=== PATIENT | female | born 1960 | race Two or more races ===

== ENCOUNTER 2025-05-05 20:44 | Emergency (ER) | payer BC, OTHER ==
[~2025-05-05] VITALS: Ht 172.7 cm; Wt 89.0 kg
[2025-05-05 20:54] VITALS: BP 118/80; PULSE 88; RESP 16; TEMP 97.8; O2SAT 94
[2025-05-05] MEDS ORDERED: ACETAMINOPHEN 325 MG TAB PO ONE (21:30)
[2025-05-05] MEDS ORDERED: KETOROLAC TROMETH 30 MG/ML 1ML VIAL IM ONE (21:30)
--- NOTE | 2025-05-05 21:47 | ED.PDOC ---
GI ASSESSMENT HPI Comments 64-year-old female with a history of hypertension, and UTIs, was brought in by emergency services with a chief complaint of right lower quadrant abdominal pain with the associated nausea, chills, sweats, and dysuria. Patient states over right lower quadrant abdominal patient has spent onset for the past week with no alleviating factors at this time, the worsening factor upon eating. Patient also her pain has progressively worsened today. Patient denies any hematuria, headache, blurred vision, weakness, neither associated symptoms, modifying at this time. PHYSICAL EXAM: General: Awake, alert and oriented. Moderate distress. Chronic ill-appearing Skin: Skin in warm, dry and intact. Appropriate color for ethnicity. HEENT: The head is normocephalic and atraumatic. Conjunctivae are clear without exudates or hemorrhage. Sclera is non-icteric. EOM are intact. No signs of nystagmus. Eyelids are normal in appearance without swelling or lesions. Oral mucosa is pink and moist Neck: The neck is supple with normal range of motion. No JVD. Cardiac: Heart rate and rhythm are normal. No murmurs, gallops, or rubs are auscultated. Respiratory: No signs of respiratory distress. Lung sounds are clear in all lobes bilaterally without rales, rhonchi, or wheezes. Abdominal: Abdomen is soft, with right lower quadrant tenderness upon palpitation. Bowel sounds are present and normoactive in all of the remaining quadrants. Extremities: Upper and lower extremities are atraumatic in appearance without deformity or edema. Neurological: The patient is awake, alert and oriented to person, place, and time with normal speech. Speech is clear. There is no facial asymmetry. Psychiatric: Appropriate mood and affect. Good judgement and insight. REVIEW OF SYSTEMS: General: No fever, + chills, or fatigue HEENT: No sore throat, no earache, no congestion, no neck pain. Cardiac: No chest pain. No palpitations. Lungs: No shortness of breath, no cough. GI: + nausea, no vomiting, no diarrhea, no constipation, + right lower quadrant abdominal pain : No dysuria, frequency, or urgency. No hematuria. Musculoskeletal: No joint pain , no joint swelling, no extremity edema. Skin: No rash, no itching. Neuro: No headache, no dizziness, no weakness Chief Complaint: Abdominal Pain Time Seen by MD: 21:42 Reviewed Notes: Nurses Notes, Etiologist Notes, Medications, Allergies Allergies: Coded Allergies: Hydroxychloroquine (Verified Allergy, Unknown, 05/05/25) Home Meds Active Scripts Cephalexin Monohydrate (Cephalexin) 500 Mg Cap, 1 CAP PO BID for 10 Days, #20 CAP Prov:WALE WATSON MD 05/06/25 Information Source: Patient, Emergency Med Personnel Mode of Arrival: EMS Timing: Weeks Duration: Intermittent Prehospital treatment: 12 Lead EKG, Accucheck, Skydiving Instructor Quality: Aching, Sharp Vomitus: None Stool: Normal Severity: None Recent: None Recent Hx of: None Pain Location: RLQ Modifying Factors: Movement Associated sign and symptoms: Nausea, Abdominal Pain Past Medical History PAST MEDICAL HISTORY: HTN, UTI'S Surgical History: Denies all surgeries Family History Family History: Unknown Social History Smoker: Non-Smoker Alcohol: Denies ETOH Use Drugs: Denies Drug Use Lives In: Home Was a procedure done? Was a procedure done?: No GI differential Dx Differential Diagnosis: Appendicitis, Bowel Obstruction, Cholangitis, Cholecystitis, Constipation, Diverticular disease, Gastritis/PUD, Gastroe nteritis, Hernia, Ovarian cyst/torsion, Pancreatitis, Urinary Obstruction, UTI, Urolithiasis, Dehydration, Electrolyte Imbalance, Food Poisoning, Impaction, Renal Failure, Kidney Stone X-Ray, Labs, Meds, VS Vital Signs Date Time Temp Pulse Resp B/P (MAP) Pulse Ox O2 Delivery O2 Flow Rate FiO2 05/05/25 20:54 97.8 88 16 118/80 94 97.8 Lab Test 05/05/25 21:42 05/05/25 21:00 Range/Units White Blood Count 4.7 4.4-10.8 10^3/uL Red Blood Count 3.73 L 4.0-5.20 10^6/uL Hemoglobin 12.1 L 12.2-16.2 g/dL Hematocrit 35.3 L 36.0-46.0 % Mean Corpuscular Volume 94.5 80.0-100.0 fL Mean Corpuscular Hemoglobin 32.5 H 28.0-32.0 pg Mean Corpuscular Hemoglobin Concent 34.4 32.0-36.0 g/dL Red Cell Distribution Width 14.4 H 11.8-14.3 % Platelet Count 222 140-450 10^3/uL Mean Platelet Volume 7.2 6.9-10.8 fL Neutrophils (%) (Auto) 87.2 H 37.0-80.0 % Lymphocytes (%) (Auto) 10.5 10.0-50.0 % Monocytes (%) (Auto) 1.7 0.0-12.0 % Eosinophils (%) (Auto) 0.1 0.0-7.0 % Basophils (%) (Auto) 0.5 0.0-2.0 % Neutrophils # (Auto) 4.1 1.6-8.6 10 ^3/uL Lymphocytes # (Auto) 0.5 0.4-5.4 10 ^3/uL Monocytes # (Auto) 0.1 0-1.3 10 ^3/uL Eosinophils # (Auto) 0 0-0.8 10 ^3/uL Basophils # (Auto) 0 0-0.2 10 ^3/uL Nucleated Red Blood Cells 0.1 % Sodium Level 133 L 136-145 mmol/L Potassium Level 4.3 3.5-5.1 mmol/L Chloride Level 99 98-107 mmol/L Carbon Dioxide Level 22 20-31 mmol/L Anion Gap 12 5-15 Blood Urea Nitrogen 15 9-23 mg/dL Creatinine 1.25 H 0.550-1.02 mg/dL Glomerular Filtration Rate Calc 48 >90 mL/min BUN/Creatinine Ratio 12.0 10.0-20.0 Serum Glucose 111 H 74-106 mg/dL Calcium Level 9.5 8.7-10.4 mg/dL Urine Color Yellow Yellow Urine Clarity Turbid H Clear Urine pH 5.5 5.0-9.0 Urine Specific [place] 1.022 1.001-1.035 Urine Protein Trace H Negative Urine Ketones 1+ H Negative Urine Blood Negative Negative /uL Urine Nitrite Negative Negative Urine Bilirubin Negative Negative Urine Urobilinogen Normal Negative mg/dL Urine Leukocyte Esterase 3+ Negative /uL Urine RBC 1 0 - 4 /hpf Urine Microscopic WBC 67 H 0-5 /HPF Urine Squamous Epithelial Cells Mod <5 /hpf Urine Bacteria Few H None Seen /hpf Urine Hyaline Casts Few 0 - 2 /lpf Urine Mucus Few None Seen Urine Glucose Normal Normal mg/dL [facility] [id number] [facility] [id number] Ph: [phone] DIAGNOSTIC IMAGING Diagnostic Imaging Report : [id number] Signed PATIENT: AMOS ELLISONACCT: [id number] UNIT: [id number] : 1960 LOC: ER ROOM / BED: / AGE / SEX: 64 / F ADM STATUS: REG ER SERVICE 28 ORDERING PHYSICIAN: WALE WATSON MD PROCEDURE(s): ABPL - CT AB PEL WO CON-NO ORAL OR IV REASON: RIGHT LOWER QUADRANT ABDOMINAL PAIN, DYSURIA ORDER NUMBER(s): [id number], ACCESSION NUMBER(s): [id number] CLINICAL HISTORY: RIGHT LOWER QUADRANT ABDOMINAL PAIN, DYSURIA TECHNIQUE: CT of the abdomen and pelvis was performed without intravenous contrast. This exam was performed according to our departmental dose optimization program. Up-to-date CT equipment and radiation dose reduction techniques are utilized as appropriate. 15.37 CTDI: 15.37 DLP: 871.4 WID: COMPARISON: None FINDINGS: Lower Thorax: Minimal linear bibasilar scarring or atelectasis. Normal-sized heart. Moderate coronary artery calcifications. Liver and Biliary system: Unremarkable. Spleen: Unremarkable. Adrenal Glands and Kidneys: Probable cyst in the upper pole right kidney measuring 2.8 cm on series 2, image 41. No hydronephrosis or nephrolithiasis. Normal adrenal glands. Mild perinephric soft tissue stranding. Pancreas and Retroperitoneum: Mild pancreatic atrophy. No retroperitoneal lymphadenopathy. Aorta and Major Vessels: Aortoiliac vessels are normal in caliber containing mod erate calcified atherosclerotic plaque. Bowel, Mesentery and Peritoneal space: Normal caliber small and large bowel. Normal appendix. No free air or fluid collection. Mild predominantly distal colonic diverticulosis. Pelvis: Mild wall thickening of the urinary bladder although is underdistended. Otherwise unremarkable pelvis. Abdominal wall and Osseous Structures: Mild lower thoracic and lumbar spondylosis. No destructive osseous lesion. Chondrocalcinosis of the right hip and pubic symphysis. IMPRESSION: Mild bladder wall thickening although may be in part due to underdistention. Correlate with urinalysis if there is clinical concern for cystitis. Mild perinephric soft tissue stranding which is nonspecific . Correlate with urinalysis if there is clinical concern for urinary tract infection. Moderate calcified coronary artery disease partially imaged. Mild distal colonic diverticulosis. ATED BY: LEONARDO STONE MD DICTATED DATE/TIME: 05/05/252353 SIGNED BY: LEONARDO STONE MD SIGNED DATE/TIME: 05/05/252353 CC: Time of 1ST Reevaluation: 22:14 Reevaluation 1ST: Unchanged Patient Education/Counseling: Diagnosis, Treatment, Need For Follow Up Family Education/Counseling: No Family Present SEPSIS Sepsis Screen Date sepsis recognized/suspect: May 05, 2025 Time Sepsis recognized/suspect: 2053 Recent Procedure: No On Antibiotic Therapy: Yes Respiratory Rate >20: No Heart Rate >90: No Temp<36 C (96.8 F) or >38.3 C: No SBP <90 or MAP <65 mmHG: No New Acute Mental Status Change: No Is the patient on CPAP, BIPAP,: No Physician Orders Ct Ab Pel Wo Con-No Oral Or Iv (05/05/25 21:29) Vital Signs Date Time Temp Pulse Resp B/P (MAP) Pulse Ox O2 Delivery O2 Flow Rate FiO2 05/05/25 20:54 97.8 88 16 118/80 94 97.8 Laboratory Tests Test 05/05/25 21:42 White Blood Count 4.7 10^3/uL (4.4-10.8) Departure 1 Departure Time of Disposition: 00:32 Impression: Primary Impression: Abnormal renal function test Additional Impression: Urinary tract infection Disposition: HOME / SELF CARE / HOMELESS Condition: Stable Additional Instructions: ED DISCHARGE INSTRUCTIONS Instructions: Please read all instructions provided in this packet carefully. Although you have been discharged from the Emergency Department, this does not mean that you have a "clean bill of health". No definitive diagnosis for your symptoms has been made today. It is possible that you are in the process of developing a serious illness. This is why you must return to the ED without fail if any new or worsening symptoms (especially if your symptoms include chest pain, trouble breathing, abdominal pain, fever, headache, confusion, trouble seeing, or trouble walking) It is also very important that you see a primary care provider (PCP) within the next 3-5 days to follow up. Your renal function test was abnormal today. This could mean that you are dehydrated or that you have chronic kidney disease. It is very important that he follow up with the primary care provider to have repeat lab testing. Be sure to drink plenty of water. If you are unable to get an appointment, return to the ED for re-evaluation. Female Urinary Tract Infection (UTI): Care Instructions A urinary tract infection (UTI) is an infection caused by bacteria. It can happen anywhere in the urinary tract. A UTI can happen in the: Kidneys. Ureters, the tubes that connect the kidneys to the bladder. Bladder. Urethra, where the urine comes out. Most UTIs are bladder infections. They often cause pain or burning when you urinate. Most UTIs can be cured with antibiotics. If you are prescribed antibiotics, be sure to complete your treatment so that the infection does not get worse. Follow-up care is a lópez part of your treatment and safety. Be sure to make and go to all appointments, and call your doctor if you are having problems. It's also a good idea to know your test results and keep a list of the medicines you take. How can you care for yourself at home? Take your antibiotics as directed. Do not stop taking them just because you feel better. You need to take the full course of antibiotics. Drink extra water and other fluids for the next day or two. This will help make the urine less concentrated and help wash out the bacteria that are causing the infection. (If you have kidney, heart, or liver disease and have to limit fluids, talk with your doctor before you increase the amount of fluids you drink.) Avoid drinks that are carbonated or have caffeine. They can irritate the bladder. Urinate often. Try to empty your bladder each time. To relieve pain, try taking a warm bath in plain water or laying a heating pad set on low over your lower belly or genital area. Never go to sleep with a heating pad in place. Avoid bubble baths and hygiene sprays, powders, or perfumes in the vagina or on the vulva. Do not douche. These things can irritate the urethra and may make symptoms worse. To help prevent UTIs Drink plenty of water each day. This helps you urinate often, which clears bacteria from your system. (If you have kidney, heart, or liver disease and have to limit fluids, talk with your doctor before you increase the amount of fluids you drink.) Urinate when you need to. If you are sexually active, urinate right after you have sex. Change sanitary pads often. After going to the bathroom, wipe from front to back. When should you call for help? Contact your doctor now or seek immediate medical care if: Symptoms such as a fever, chills, nausea, or vomiting get worse or happen for the first time. You have new pain in your back just below your rib cage. This is called flank pain. There is new blood or pus in your urine. You are not able to take or keep down your antibiotics. Watch closely for changes in your health, and be sure to contact your doctor if: You are not getting better after taking an antibiotic for 2 days. Your symptoms go away but then come back. Credits for Female Urinary Tract Infection (UTI): Care Instructions Current as of: December 31, 2024 Author: [employer] Clinical Review Board All [employer] education is reviewed by a team that includes physicians, nurses, advanced practitioners, registered dieticians, and other healthcare professionals. e-Prescriptions Cephalexin Monohydrate (Cephalexin) 500 Mg Cap 1 CAP PO BID for 10 Days, #20 CAP Prov: WALE WATSON MD 05/06/25 Comments 64-year-old female with right lower quadrant. Patient is well-appearing, nontoxic. Patient's symptoms improved during the ED observation. Vital signs stable. We will treat for urinary tract infection. Other Diagnostic results reviewed and are not urgently actionable. Patient is felt stable for discharge home. Patient advised to follow up with primary care provider promptly and return to the emergency department with any new, worsening or concerning symptoms. Critical Care Note Critical Care Time?: No Stability Stability form required: No Heart Score Heart Score: Heart Score Response (Comments) Value History N/A 0 EKG N/A 0 Age N/A 0 Risk Factors N/A 0 Troponin N/A 0 Total 0 I personally scribed for WALE WATSON MD ([email or web address]) on 05/05/25 at 21:47. Electronically submitted by Jonathon Ovalle ([email or web address]). WALE WATSON MD May 05, 2025 21:47
[2025-05-05 22:02] LABS: Hematocrit 35.3 % (36.0-46.0); Hemoglobin 12.1 g/dL (12.2-16.2); Mean Corpuscular Hemoglobin 32.5 pg (28.0-32.0); Mean Corpuscular Volume 94.5 fL (80.0-100.0); Nucleated Red Blood Cells % 0.1 %
[2025-05-05 22:09] LABS: Anion Gap 12 (5-15); Carbon Dioxide 22 mmol/L (20-31); Chloride 99 mmol/L (98-107); Potassium 4.3 mmol/L (3.5-5.1)
[2025-05-05 22:10] LABS: Calcium 9.5 mg/dL (8.7-10.4)
[2025-05-05 22:15] LABS: BUN/Creatinine Ratio 12.0 (10.0-20.0); Blood Urea Nitrogen 15 mg/dL (9-23)
[2025-05-05 22:25] LABS: Glucose 111 mg/dL (74-106); Sodium 133 mmol/L (136-145)
[2025-05-05 22:35] LABS: Urine Protein, UAD TRACE (Negative)
--- NOTE | 2025-05-05 23:57 | DVH ---
CLINICAL HISTORY: RIGHT LOWER QUADRANT ABDOMINAL PAIN, DYSURIA TECHNIQUE: CT of the abdomen and pelvis was performed without intravenous contrast. This exam was per formed according to our departmental dose optimization program. Up-to-date CT equipment and radiation dose reduction techniques are utilized as appropriate. 15.37 CTDI: 15.37 DLP: 871.4 WID: COMPARISON: None FINDINGS: Lower Thorax: Minimal linear bibasilar scarring or atelectasis. Normal-sized heart. Moderate coronary artery calcifications. Liver and Biliary system: Unremarkable. Spleen: Unremarkable. Adrenal Glands and Kidneys: Probable cyst in the upper pole right kidney measuring 2.8 cm on series 2 , image 41. No hydronephrosis or nephrolithiasis. Normal adrenal glands. Mild perinephric soft tissue stranding. Pancreas and Retroperitoneum: Mild pancreatic atrophy. No retroperitoneal lymphadenopathy. Aorta and Major Vessels: Aortoiliac vessels are normal in caliber containing moderate calcified ather osclerotic plaque. Bowel, Mesentery and Peritoneal space: Normal caliber small and large bowel. Normal appendix. No free air or fluid collection. Mild predominantly distal colonic diverticulosis. Pelvis: Mild wall thickening of the urinary bladder although is underdistended. Otherwise unremarkab le pelvis. Abdominal wall and Osseous Structures: Mild lower thoracic and lumbar spondylosis. No destructive oss eous lesion. Chondrocalcinosis of the right hip and pubic symphysis. IMPRESSION: Mild bladder wall thickening although may be in part due to underdistention. Correlate with urinalys is if there is clinical concern for cystitis. Mild perinephric soft tissue stranding which is nonspecific . Correlate with urinalysis if there is c linical concern for urinary tract infection. Moderate calcified coronary artery disease partially imaged. Mild distal colonic diverticulosis.
[2025-05-06] MEDS ORDERED: cefTRIAXone 1GM/50ML D5W 50 ML IV ONE (00:30)
[2025-05-06] MEDS ORDERED: SODIUM CHLORIDE 0.9% 1,000 ML IV ONE (00:30)
[2025-05-06] MEDS ORDERED: CEPH500C PO (00:37)
== END 2025-05-06 04:53 | disposition home or self-care (01) ==
LOC: EDBD 20:44 → ER 20:44
DX: N39.0 Urinary tract infection, site not specified (principal); R94.4 Abnormal results of kidney function studies; I10 Essential (primary) hypertension
CPT/HCPCS: 36415; 74176; 80048; 81001; 85025